=== PATIENT | female | born 1955 | race African-American/Black ===

== ENCOUNTER 2021-09-19 06:47 | Day surgery (SDC) | payer MEDICARE ==
[~2021-09-19] VITALS: Ht 154.9 cm; Wt 86.4 kg
[~2021-09-19 06:47] MED LIST: DIPH25TA62 PO; NAPAOS EACHEYE; PRED10TA PO
[2021-09-19 07:20] VITALS: BP 140/70
[2021-09-19] MEDS ORDERED: HYDR25TA4 PO (07:22)
[2021-09-19] MEDS ORDERED: AMLO5TAB16 PO (07:22)
[2021-09-19] MEDS ORDERED: ATEN-168 PO (07:23)
[2021-09-19] MEDS ORDERED: FEXO1TAB8 PO (07:24)
[2021-09-19] MEDS ORDERED: HYDR-3965 PO (07:25)
[2021-09-19] MEDS ORDERED: LIDOcaine 1% 30ml preserv. free vial SQ STA (07:57)
[2021-09-19] MEDS ORDERED: LIDOcaine 1%/PF 5ML 10 MG/ML VIAL SQ ONE (08:00)
[2021-09-19 09:00] VITALS: BP 138/67
== END 2021-09-19 09:15 | disposition home or self-care (01) ==
LOC: SSTAY O 06:47
PROVIDERS: ATTEND Radiology Vascular & Interventional Radiology
DX: R22.1 Localized swelling, mass and lump, neck (principal); Z79.899 Other long term (current) drug therapy
CPT/HCPCS: 20206; 76942

== ENCOUNTER 2022-10-31 18:25 | Emergency (ER) | payer MEDICARE ==
[~2022-10-31] VITALS: Ht 154.9 cm; Wt 85.9 kg
[~2022-10-31 18:25] MED LIST changes: +AMLO5TAB16 PO; -DIPH25TA62 PO; +FEXO1TAB8 PO; +HYDR25TA4 PO; -NAPAOS EACHEYE; -PRED10TA PO
[2022-10-31] MEDS ORDERED: normal saline 1000ML IV soln IV ONE (18:30)
[2022-10-31] MEDS ORDERED: CefTRIAXone 2gm/D5W 50ml BAG 50 ML IV ONE (19:00)
[2022-10-31 19:24] LABS: BASOPHILS % (AUTO) 0.2 % (0-1); EOSINOPHILS % (AUTO) 0 % (0-6); HEMATOCRIT 34.5 % (35.0-45.0); HEMOGLOBIN 11.6 g/dl (12.0-16.0); LYMPHOCYTES # (AUTO) 0.3 X10'3 (1.1-4.8); LYMPHOCYTES % (AUTO) 3.2 % (21-51); MEAN CORPUSCULAR HEMOGLOBIN 30.6 PG (27.0-31.0); MEAN CORPUSCULAR HGB CONC 33.5 g/dL (33.0-36.5); MEAN CORPUSCULAR VOLUME 91.2 FL (78-98); MEAN PLATELET VOLUME 9.1 FL (7.4-10.4); MONOCYTES # (AUTO) 0.4 X10'3 (0-0.9); MONOCYTES % (AUTO) 3.7 % (2-12); NEUTROPHILS # (AUTO) 9.2 X10'3 (1.8-7.7); NEUTROPHILS % (AUTO) 92.9 % (42-75); PLATELET COUNT 155 X10'3 (140-440); RED BLOOD COUNT 3.79 X10'6 (4.20-5.60); WHITE BLOOD COUNT 9.9 X10'3 (4.5-11.0)
[2022-10-31 19:32] LABS: ALANINE AMINOTRANSFERASE 37 U/L (12-78); ALBUMIN 3.3 G/DL (3.4-5.0); ALBUMIN/GLOBULIN RATIO 0.8 (1.1-1.5); ALKALINE PHOSPHATASE 62 IU/L (46-116); ANION GAP 7 (8-16); ASPARTATE AMINO TRANSFERASE 33 U/L (10-37); BLOOD UREA NITROGEN 12 MG/DL (7-18); BUN/CREATININE RATIO 12.2 (10.0-20.0); CALCIUM 9.3 MG/DL (8.5-10.1); CHLORIDE 98 MMOL/L (99-107); CREATININE 0.98 MG/DL (0.40-0.90); GLUCOSE 113 MG/DL (70-104); MAGNESIUM 1.7 MG/DL (1.5-2.4); SODIUM 133 MMOL/L (135-145); TOTAL PROTEIN 7.4 G/DL (6.4-8.2); eGFR 68 ML/MIN
[2022-10-31 19:43] LABS: POTASSIUM 2.9 MMOL/L (3.5-5.1)
[2022-10-31] MEDS ORDERED: potassium Cl 20 mEq SR tablet PO STA (19:53)
[2022-10-31] MEDS ORDERED: POTA-207 PO (20:28)
[2022-10-31] MEDS ORDERED: ONDA4TAB12 PO (20:28)
[2022-10-31] MEDS ORDERED: CEPH-585 PO (20:28)
[2022-10-31] MEDS ORDERED: ondansetron/PF 4mg/2ml inj IV ONE (20:30)
[2022-10-31 20:36] LABS: CLARITY,URINE SLIGHTLY CLOUDY (Clear); COLOR,URINE YELLOW (Yellow); GLUCOSE, URINE NEGATIVE (Neg); KETONES,URINE 15 mg/dl (Neg); LEUKOCYTE ESTERASE ,URINE MODERATE (Neg); NITRITES, URINE POSITIVE (Neg); OCCULT BLOOD,URINE SMALL (Neg); PROTEIN,URINE TRACE mg/dl (Neg); UROBILINOGEN,URINE 0.2 E.U/dL (0.2-1.0)
[2022-10-31 20:38] LABS: UA COLLECTION TYPE CLN CATCH MIDSTREAM
[2022-10-31 20:42] LABS: MUCUS STRANDS FEW /LPF (Neg); SQUAMOUS EPITHELIAL CELL,UR FEW /LPF (FEW); TRANSITIONAL EPI CELLS,URINE FEW /HPF; WBC CLUMPS,URINE FEW /HPF (NEGATIVE); WBC,URINE 30-50 /HPF (0-4)
[2022-10-31 20:43] LABS: BACTERIA,URINE 2+ /HPF (Neg)
[2022-10-31 21:10] VITALS: BP 110/67
--- NOTE | 2022-11-02 17:32 | NUR ---
PT CALLED REGARDING LABS ON 10/31, NO ANSWER, MSG LEFT TO RETURN CALL
== END 2022-10-31 21:32 | disposition home or self-care (01) ==
LOC: ER 18:25
DX: N39.0 Urinary tract infection, site not specified (principal); E86.0 Dehydration; R10.9 Unspecified abdominal pain; I10 Essential (primary) hypertension; Z88.6 Allergy status to analgesic agent
CPT/HCPCS: 36415; 71045; 80053; 81001; 83605; 83735; 84145; 85025; 87040; 87077; 87088; 87186; 96365; 96375; 99284; J0696; J2405; J7030